=== PATIENT | male | born 1955 | race American Indian/Alaskan Native ===

== ENCOUNTER 2018-02-08 17:01 | Inpatient (IN) | payer SELFPAY ==
--- NOTE | 2018-02-08 17:38 | Emergency Department Report ---
HPI - General Chief Complaint: Seizure Time Seen by Provider: 02/08/18 17:35 - HPI HPI: 62-year-old -[place] male presents to the emergency department via EMS from outside of his home after a passerby knows the patient had passed out or was face down in the yard. EMS found him this way. At that time he was awake but confused. He was given 1 L of IV fluid in route and allegedly had some improvement but he is still confused. Patient is AAO [address] but not time. He denies any past medical history. He does admit to drinking beer regularly but says he did not drink any today. He says that he was outside cutting his yard/grass. He has a tobacco smoker. Currently the patient says that he feels fine without any physical complaints. ED Past Medical Hx - Social History Smoking Status: Never Smoker ED Review of Systems ROS: Stated complaint: SEIZURES Other details as noted in HPI Comment: Unobtainable due to pts medical conditions Cardiovascular: syncope Physical Exam - Physical Exam Vital Signs: Vital Signs 02/08/18 17:22 Temperature 98.7 F Pulse Rate 75 Respiratory 18 Rate Blood Pressure 141/80 O2 Sat by Pulse 100 Oximetry Physical Exam: GENERAL: The patient is well-developed well-nourished. HENT: Normocephalic. Atraumatic. Patient has moist mucous membranes. EYES: Extraocular motions are intact. Pupils equal reactive to light bilaterally. No nystagmus. NECK: Supple. Trachea is midline. CHEST/LUNGS: Clear to auscultation. There is no respiratory distress noted. HEART/CARDIOVASCULAR: Regular. There is no tachycardia. There is no murmur. ABDOMEN: Abdomen is soft, nontender. Patient has normal bowel sounds. There is no abdominal distention. SKIN: Skin is warm and dry. NEURO: The patient is awake, alert. Oriented to person and place but not time. The patient is cooperative. The patient has no focal neurologic deficits. The patient has normal speech and gait. No pronator drift. No dysmetria. Cranial nerves II through XII grossly intact. MUSCULOSKELETAL: There is no tenderness or deformity. There is no limitation range of motion. There is no evidence of acute injury. ED Course Vital Signs 02/08/18 17:22 Temperature 98.7 F Pulse Rate 75 Respiratory 18 Rate Blood Pressure 141/80 O2 Sat by Pulse 100 Oximetry ED Medical Decision Making - Lab Data Result diagrams: 02/08/18 17:46 02/08/18 17:46 - EKG Data -: EKG Interpreted by Me EKG shows normal: sinus rhythm, axis, intervals, QRS complexes, ST-T waves Rate: normal - EKG Data When compared to previous EKG there are: previous EKG unavailable Interpretation: normal EKG - Radiology Data Radiology results: report reviewed, image reviewed interpreted by me: Chest x-ray does not show any acute process. There are no pleural effusions, obvious pneumonia and there is no pneumothorax. EXAM: CT HEAD/BRAIN WO CON HISTORY: Altered Mental Status TECHNIQUE: CT examination of the head without IV contrast PRIORS: None. FINDINGS: Very small chronic appearing lacunar infarct right caudate head. No acute air-fluid level visualized in the included air-filled sinuses. Bone windows demonstrate no acute fracture. There is ventricular and sulcal prominence compatible with global cerebrocortical atrophy. The brain contains no mass, mass effect, hemorrhage, or acute infarct. There is no extra-axial intracranial bleed, brain bleed, or midline shift. IMPRESSION: No acute CVA, intracranial bleed, or brain mass Findings most compatible with very small chronic lacunar infarct in right caudate head Transcribed By: EDWIN Dictated By: HERNÁN LARSON MD Electronically Authenticated By: HERNÁN LARSON MD Signed Date/Time: 02/08/181846 - Medical Decision Making This patient presents to the emergency department via EMS after he was found down in a yard where he was mowing the lawn. 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 The patient has been awake, alert and cooperative since he has been in the emergency department and has no complaints. However the patient is unable to give the appropriate here or tell the president is. He says that it is 2002 , and this 15 year difference seems to much for the patient to claim that he just loses track of time. I spoke with his friend Seamus, and then later his sister Norma, and both of these individuals say that this patient usually is "sharp" and should usually know what year it is. 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 Patient says that he did drink some Gatorade but his sister thinks that he does not hydrate and off. However the urine does not show any ketones and there is no signs of prerenal azotemia or any systemic signs of dehydration at this time. A CT scan of the head was done that does not show any bleed, shift, mass, ischemia or any other acute process. Chest x-ray does not show any pneumonia, pneumothorax, pleural effusions or focal consolidation or any other acute process. EKG did not show any signs of ST elevation [place] or dysrhythmia. Patient's differential includes orthostatic hypotension, vasovagal episode, TIA, heatstroke, versus other. Patient has been given another liter of IV fluid as well as loaded with some Keppra and he will be admitted to the hospital for further evaluation and treatment. He was accepted for admission by the hospitalist, Dr. Begum. - Differential Diagnosis TIA, seizure, vasovagal episode, orthostatic hypotension Critical Care Time: No Critical care attestation.: If time is entered above; I have spent that time in minutes in the direct care of this critically ill patient, excluding procedure time. ED Disposition Clinical Impression: Syncope Qualifiers: Syncope type: unspecified Qualified Code(s): R55 - Syncope and collapse Altered mental status Qualifiers: Altered mental status type: unspecified Qualified Code(s): R41.82 - Altered mental status, unspecified Disposition: -09 OP ADMIT IP TO THIS HOSP Is pt being admited?: Yes Condition: Fair Instructions: Syncope (ED) Referrals: PRIMARY CARE, [Primary Care Provider] - 3-5 Days Time of Disposition: 23:00
[2018-02-08 18:00] LABS: Basophils % (Auto) 0.7 % (0.0-1.8); Eosinophils % (Auto) 1.1 % (0.0-4.3); Hemoglobin 11.6 gm/dl (11.8-15.2); Lymphocytes # (Auto) 0.8 K/mm3 (1.2-5.4); Lymphocytes % (Auto) 18.6 % (13.4-35.0); Mean Corpuscular HGB Conc 35 % (32-34); Mean Corpuscular Hemoglobin 34 pg (28-32); Mean Corpuscular Volume 98 fl (84-94); Monocytes # (Auto) 0.3 K/mm3 (0.0-0.8); Monocytes % (Auto) 7.8 % (0.0-7.3); Platelet Count 166 K/mm3 (140-440); Red Blood Count 3.38 M/mm3 (3.65-5.03); Red Cell Distribution Width 12.1 % (13.2-15.2)
[2018-02-08 18:11] LABS: INR 0.96 (0.87-1.13)
[2018-02-08 18:12] LABS: Partial Thromboplastin Time 32.3 Sec. (24.2-36.6)
[2018-02-08 18:19] LABS: Alanine Aminotransferase 73 units/L (7-56); Albumin 4.1 g/dL (3.9-5); BUN/Creatinine Ratio 7; Blood Urea Nitrogen 7 mg/dL (9-20); Calcium 8.9 mg/dL (8.4-10.2); Hemolysis Index 6
--- NOTE | 2018-02-08 18:49 | Cat Scan Report ---
FINAL REPORT EXAM: CT HEAD/BRAIN WO CON HISTORY: Altered Mental Status TECHNIQUE: CT examination of the head without IV contrast PRIORS: None. FINDINGS: Very small chronic appearing lacunar infarct right caudate head. No acute air-fluid level visualized in the included air-filled sinuses. Bone windows demonstrate no acute fracture. There is ventricular and sulcal prominence compatible with global cerebrocortical atrophy. The brain contains no mass, mass effect, hemorrhage, or acute infarct. There is no extra-axial intracranial bleed, brain bleed, or midline shift. IMPRESSION: No acute CVA, intracranial bleed, or brain mass Findings most compatible with very small chronic lacunar infarct in right caudate head
[2018-02-08] MEDS ORDERED: LEVOPHED DRIP 4 MG/NS 250 ML 4 MG/250 ML BAG IV ONE (20:50)
--- NOTE | 2018-02-08 21:06 | XRay Report ---
FINAL REPORT PROCEDURE: Chest. TECHNIQUE: Chest radiograph anteroposterior view. CPT 02792 HISTORY: Altered Mental Status COMPARISON: No prior studies are available for comparison. FINDINGS: The heart and mediastinum appear normal. There is calcification in the thoracic aorta. The lungs are clear and well expanded. There are no pleural effusions. The soft tissues and regional skeleton are unremarkable. IMPRESSION: No evidence of acute disease.
[2018-02-08 21:08] LABS: Amphetamine Screen,Urine PRESUMPTIVE NEGATIVE; Benzodiazepines Screen,Urine PRESUMPTIVE NEGATIVE; Cannabinoid Screen,Urine PRESUMPTIVE NEGATIVE; Cocaine Screen,Urine PRESUMPTIVE NEGATIVE; Methadone Screen,Urine PRESUMPTIVE NEGATIVE; Opiate Screen,Urine PRESUMPTIVE NEGATIVE
[2018-02-08 21:09] LABS: Bilirubin,Urine NEG (Negative); Blood,Urine SM (Negative); Color,Urine Yellow (Yellow); Mucus,Urine FEW /HPF; Protein,Urine <15 mg/dL mg/dL (Negative); WBC,Urine < 1.0 /HPF (0.0-6.0)
[2018-02-08] MEDS ORDERED: KEPPRA 1,000 MG/NS 0.75% 100ML 1,000 MG/100 ML BAG IV ONE (21:28)
[2018-02-08] MEDS ORDERED: NACL 0.9% 1000 ML 1,000 ML IV ONE (21:36)
[2018-02-08] MEDS ORDERED: ZOFRAN IV PRN (22:40)
[2018-02-08] MEDS ORDERED: SODIUM CHLORIDE FLUSH SYRINGE 10 ML IV PRN (22:40)
[2018-02-08] MEDS ORDERED: TYLENOL PO PRN (22:40)
--- NOTE | 2018-02-08 22:43 | History and Physical Report ---
History of Present Illness Date of examination: 02/08/18 History of present illness: This is a 62-year-old man with no medical problem comes to emergency room because he was found outside unresponsive. Patient stated he was outside cutting grass for about 5 hours, he cannot recall what happened, EOMI clear if he had any seizure activity. The patient was initially confused upon arrival in the emergency room but he is now back to baseline, he was given a gram of Keppra in the ER Review of systems Constitutional: no weight loss, chills, fever Ears, eyes, nose, mouth and throat: no nasal congestion, no nasal discharge, no sinus pressure, no vision change, no red eye. Neck: No neck pain or rigidity. Cardiovascular: no chest pain, palpitations Respiratory: no cough, shortness of breath Gastrointestinal: no abdominal pain hematochezia Genitourinary : no frequency , no hematuria Musculoskeletal: no joint swelling or muscle ache Integumentary: no rash, no pruritis Neurological: no parathesias, no numbness, no focal weakness Endocrine: no cold or heat intolerance, no polyuria or polydipsia Hematologic/Lymphatic: no easy bruising, no easy bleeding, no gland swelling Allergic/Immunologic: no urticaria, no angioedema. PAST MEDICAL HISTORY: None PAST SURGICAL HISTORY: None SOCIAL HISTORY: Drinks alcohol, no drugs, tobacco FAMILY HISTORY: Hypertension Medications and Allergies Allergies Allergy/AdvReac Type Severity Reaction Status Date / Time No Known Allergies Allergy Verified 02/08/18 20:48 Exam - Physical Exam Narrative exam: Gen. appearance: Patient lying in bed, no apparent distress HEENT: Normocephalic, atraumatic, pupils equally round and reactive to light, extraocular movement intact, and no sclericterus,. No JVD or thyromegaly or nodule,neck supple, no carotid bruit ,mucous membranes moist, no exudate or erythema Heart: S1, S2, regular rate and rhythm Lungs: Clear bilaterally, breathing comfortable Abdomen: Positive bowel sounds, non-tender, nondistended, no organomegaly Extremity:no edema cyanosis, clubbing Skin: no rash, dry, warm Neuro: Oriented 3, cranial nerves II-12 intact, speech is fluent, motor and sensory intact - Constitutional Vitals: Temp Pulse Resp BP Pulse Ox 98.7 F 75 18 141/80 100 02/08/18 17:22 02/08/18 17:22 02/08/18 17:22 02/08/18 17:22 02/08/18 17:22 Results - Labs CBC & Chem 7: 02/08/18 17:46 02/08/18 17:46 Labs: Abnormal lab results 02/08/18 02/08/18 Range/Units 17:46 17:46 WBC 4.2 L (4.5-11.0) K/mm3 RBC 3.38 L (3.65-5.03) M/mm3 Hgb 11.6 L (11.8-15.2) gm/dl Hct 33.0 L (35.5-45.6) % MCV 98 H (84-94) fl MCH 34 H (28-32) pg MCHC 35 H (32-34) % RDW 12.1 L (13.2-15.2) % O'Brien % (Auto) 7.8 H (0.0-7.3) % Lymph # 0.8 L (1.2-5.4) K/mm3 Seg Neutrophils % 71.8 H (40.0-70.0) % Sodium 132 L (137-145) mmol/L BUN 7 L (9-20) mg/dL Glucose 117 H (75-100) mg/dL AST 91 H (5-40) units/L ALT 73 H (7-56) units/L - Imaging and Cardiology EKG: image reviewed Chest x-ray: report reviewed Assessment and Plan Assessment Syncope most likely secondary to heatstroke Plan Admit to medicine Start IV fluid, checkout statics, carotid Doppler, echo Check cardiac enzymes DVT prophylaxis
[2018-02-08] MEDS ORDERED: NACL 0.45% 1000 ML 1,000 ML IV SCH (23:00)
[2018-02-09 02:41] LABS: Creatine Kinase MB 4.2 ng/mL (0.0-4.0)
[2018-02-09 07:29] LABS: Basophils % (Auto) 0.8 % (0.0-1.8); Eosinophils # (Auto) 0.1 K/mm3 (0.0-0.4); Eosinophils % (Auto) 1.6 % (0.0-4.3); Hematocrit 34.3 % (35.5-45.6); Lymphocytes # (Auto) 1.7 K/mm3 (1.2-5.4); Lymphocytes % (Auto) 33.7 % (13.4-35.0); Mean Corpuscular HGB Conc 35 % (32-34); Mean Corpuscular Hemoglobin 34 pg (28-32); Mean Corpuscular Volume 97 fl (84-94); Monocytes # (Auto) 0.5 K/mm3 (0.0-0.8); Monocytes % (Auto) 10.6 % (0.0-7.3); Platelet Count 157 K/mm3 (140-440); Red Blood Count 3.53 M/mm3 (3.65-5.03); Red Cell Distribution Width 12.1 % (13.2-15.2)
[2018-02-09 07:47] LABS: BUN/Creatinine Ratio 7; Blood Urea Nitrogen 5 mg/dL (9-20); Calcium 9.1 mg/dL (8.4-10.2); Creatine Kinase MB 4.6 ng/mL (0.0-4.0); Hemolysis Index 4
[2018-02-09] MEDS ORDERED: SODIUM CHLORIDE FLUSH SYRINGE 10 ML IV SCH (10:00)
[2018-02-09] MEDS ORDERED: LOVENOX SUB-Q SCH ×2 (10:00)
[2018-02-09 12:39] VITALS: BP 127/76
--- NOTE | 2018-02-09 14:15 | Discharge Summary ---
Providers - Providers Date of Admission: 02/08/18 22:40 Date of discharge: 02/09/18 Attending physician: JUANCARLOS SHOEMAKER Primary care physician: UPPER STITCHER Hospitalization Condition: Fair Hospital course: Brief history: Patient Is a 62 year old man with no prior medical problems came to the emergency room because he was found unresponsive outside after cutting grass for about 5 hours. He could not remember what happened and there was no documented history or weakness or seizure-like activities patient was initially confused upon arrival in the ER but during admission his mental status came back to baseline. He was given a gram of Keppra in the ER, CT head showed no acute intracranial process, his chest x-ray was unremarkable. He was admitted for further evaluation and management. He was further evaluated by 2-D echocardiogram which showed preserved ejection fraction and diastolic dysfunction. His carotid Doppler showed less than 50% stenosis bilaterally. Patient was not discharged with Keppra as an outpatient as he does not have any prior history of seizure and there's no clear history or witness that patient actually had one prior to admission. Patient was discharged home in stable condition with outpatient follow-up. Discharge diagnosis: Syncope most likely due to dehydration and being exposed to hot weather for long -time. H/o old CVA, started on aspirin and statin Radiological data: CT head: No acute CVA, intracranial bleed, or brain mass. Findings most compatible with very small chronic lacunar infarct in right caudate head. Chest x-ray: No evidence of acute disease. 2-D echo: EF 60-65% with normal and preserved LV diastolic function Disposition: TO HOME OR SELFCARE Core Measure Documentation - Palliative Care Palliative Care/ Comfort Measures: Not Applicable - Core Measures Any of the following diagnoses?: none Exam - Constitutional Vitals: Temp Pulse Resp BP Pulse Ox 98.4 F 75 20 127/76 98 02/09/18 12:00 02/09/18 12:00 02/09/18 12:00 02/09/18 12:00 02/09/18 12:00 General appearance: Present: no acute distress, well-nourished - EENT Eyes: Present: PERRL ENT: hearing intact, clear oral mucosa - Neck Neck: Present: supple, normal ROM - Respiratory Respiratory effort: normal Respiratory: bilateral: CTA - Cardiovascular Heart Sounds: Present: S1 & S2. Absent: rub, click - Extremities Extremities: pulses symmetrical, No edema Peripheral Pulses: within normal limits - Abdominal General gastrointestinal: Present: soft, non-tender, non-distended, normal bowel sounds - Integumentary Integumentary: Present: clear, warm, dry - Musculoskeletal Musculoskeletal: gait normal, strength equal bilaterally - Psychiatric Psychiatric: appropriate mood/affect, intact judgment & insight - Neurologic Neurologic: CNII-XII intact, moves all extremities Plan Activity: advance as tolerated Weight Bearing Status: Weight Bear as Tolerated Diet: low fat Follow up with: PRIMARY CARE, [Primary Care Provider] - 3-5 Days Forms: Discharge Signature Page Prescriptions: Pravastatin [Pravachol] 40 mg PO QHS #30 tablet Aspirin [Aspirin BABY CHEW TAB] 81 mg PO QDAY #30 tab.chew
== END 2018-02-09 16:49 | disposition home or self-care (01) | DRG 641 ==
LOC: ED 17:01 → 4A 22:40
PROVIDERS: ADMIT Internal Medicine; ATTEND Internal Medicine
DX: E86.0 Dehydration (principal); Z82.49 Family history of ischemic heart disease and other diseases of the circulatory system; Z86.73 Personal history of transient ischemic attack (TIA), and cerebral infarction without residual deficits; X30.XXXA Exposure to excessive natural heat, initial encounter; Y93.89 Activity, other specified; Y92.096 Garden or yard of other non-institutional residence as the place of occurrence of the external cause; Y99.8 Other external cause status
CPT/HCPCS: 36415; 70450; 71045; 80048; 80053; 80307; 80320; 81001; 82140; 82550; 82553; 84443; 84484; 85025; 85610; 85730; 93005; 93010; 93306; 93880; 96365; G0480; J1650; J1953; J7030

== ENCOUNTER 2019-02-06 22:37 | Emergency (ER) | payer SELFPAY ==
[2019-02-06] MEDS ORDERED: KEPPRA 500 MG in D5W 100 ML IV ONE (23:00)
[2019-02-06 23:40] LABS: Basophils # (Auto) 0.1 K/mm3 (0.0-0.1); Eosinophils % (Auto) 0.7 % (0.0-4.3); Hemoglobin 12.3 gm/dl (11.8-15.2); Lymphocytes # (Auto) 1.5 K/mm3 (1.2-5.4); Lymphocytes % (Auto) 25.9 % (13.4-35.0); Mean Corpuscular HGB Conc 34 % (32-34); Mean Corpuscular Volume 98 fl (84-94); Monocytes # (Auto) 0.4 K/mm3 (0.0-0.8); Monocytes % (Auto) 7.7 % (0.0-7.3); Platelet Count 235 K/mm3 (140-440); Red Blood Count 3.68 M/mm3 (3.65-5.03); Red Cell Distribution Width 12.4 % (13.2-15.2)
[2019-02-06 23:49] LABS: BUN/Creatinine Ratio 10; Blood Urea Nitrogen 9 mg/dL (9-20); Calcium 9.8 mg/dL (8.4-10.2); Hemolysis Index 6
--- NOTE | 2019-02-07 00:22 | Emergency Department Report ---
ED Seizure HPI - General Chief Complaint: Seizure Stated Complaint: SEIZURE Time Seen by Provider: 02/06/19 23:00 Source: EMS Mode of arrival: Stretcher Limitations: No Limitations - History of Present Illness Initial Comments: Mr. Gordon is a 63 yo jmale with hx of alcohol abuse and seizure disorder who presents to the ER after witnessed seizure. Witnessed by brother. Mr. Gordon at this point does not have any concerns. Livestock Laborer at the bedside did observe confusion at the scene. He explained that he does take pills. He is unable to recall the name of the pills. MD Complaint: seizure -: Sudden Description of Episode: loss of consciousness, tonic-clonic movement Witnessed:: Yes Trauma: No Seizure History: known seizure disorder, other (hx of alcohol abuse) Possible Precipitating Event: none Associated Symptoms: denies other symptoms Treatments Prior to Arrival: none - Related Data Previous Rx's Medication Instructions Recorded Last Taken Type Aspirin [Aspirin BABY CHEW TAB] 81 mg PO QDAY #30 tab.chew 02/09/18 Unknown Rx Pravastatin [Pravachol] 40 mg PO QHS #30 tablet 02/09/18 Unknown Rx levETIRAcetam [Keppra TAB] 500 mg PO BID #60 tablet 02/07/19 Unknown Rx Allergies Allergy/AdvReac Type Severity Reaction Status Date / Time No Known Allergies Allergy Verified 02/08/18 20:48 ED Review of Systems ROS: Stated complaint: SEIZURE Other details as noted in HPI Comment: All other systems reviewed and negative Constitutional: denies: fever, malaise Respiratory: denies: cough Cardiovascular: denies: chest pain Neurological: denies: headache ED Past Medical Hx - Past Medical History Previous Medical History?: Yes Hx Congestive Heart Failure: No Hx Diabetes: No Hx Seizures: Yes Hx Asthma: No Hx COPD: No - Family History Family history: hypertension - Social History Substance Use Type: Alcohol - Medications Home Medications: Home Medications Medication Instructions Recorded Confirmed Last Taken Type Aspirin [Aspirin BABY CHEW TAB] 81 mg PO QDAY #30 tab.chew 02/09/18 Unknown Rx Pravastatin [Pravachol] 40 mg PO QHS #30 tablet 02/09/18 Unknown Rx levETIRAcetam [Keppra TAB] 500 mg PO BID #60 tablet 02/07/19 Unknown Rx ED Physical Exam - General Limitations: No Limitations General appearance: alert, in no apparent distress, other (disheveled hair and clothing, awake, alert) - Head Head exam: Present: atraumatic, normocephalic - Eye Eye exam: Present: normal appearance. Absent: scleral icterus, conjunctival injection - ENT ENT exam: Present: mucous membranes moist - Neck Neck exam: Present: normal inspection, full ROM - Respiratory Respiratory exam: Present: normal lung sounds bilaterally. Absent: respiratory distress, wheezes, rales, rhonchi - Cardiovascular Cardiovascular Exam: Present: regular rate, normal rhythm, normal heart sounds. Absent: systolic murmur, diastolic murmur, rubs, gallop - GI/Abdominal GI/Abdominal exam: Present: soft, normal bowel sounds. Absent: distended, tenderness, guarding, rebound - Rectal Rectal exam: Present: deferred - Extremities Exam Extremities exam: Present: normal inspection - Back Exam Back exam: Present: normal inspection - Neurological Exam Neurological exam: Present: alert, oriented X3 - Psychiatric Psychiatric exam: Present: normal affect, normal mood - Skin Skin exam: Present: warm, dry, intact, normal color. Absent: rash ED Course Vital Signs 02/06/19 23:45 Temperature 97.6 F Pulse Rate 86 Respiratory 17 Rate Blood Pressure 163/92 [Left] O2 Sat by Pulse 98 Oximetry ED Medical Decision Making - Lab Data Result diagrams: 02/06/19 23:09 02/06/19 23:09 Laboratory Results - last 24 hr 02/06/19 02/06/19 23:09 23:09 WBC 5.7 RBC 3.68 Hgb 12.3 Hct 36.0 MCV 98 H MCH 33 H MCHC 34 RDW 12.4 L Plt Count 235 Lymph % (Auto) 25.9 [place] % (Auto) 7.7 H Eos % (Auto) 0.7 Baso % (Auto) 1.0 Lymph # 1.5 [place]ades # 0.4 Eos # 0.0 Baso # 0.1 Seg Neutrophils % 64.7 Seg Neutrophils # 3.7 Sodium 134 L Potassium 4.1 Chloride 92.5 L Carbon Dioxide 22 Anion Gap 24 BUN 9 Creatinine 0.9 Estimated GFR > 60 BUN/Creatinine Ratio 10 Glucose 149 H Calcium 9.8 - Medical Decision Making Mr. Gordon is a 63 yo male with hx of seizure disorder and alcohol abuse. He received Keppra load in the ED. Observed in the ED for 4 hours without seizure activity. BMP notable for mild hyponatremia hypochloremia. dc'd home with rx: for keppra referral to neurology Hx of seizure activity was documented one year ago on previous evaluation Critical care attestation.: If time is entered above; I have spent that time in minutes in the direct care of this critically ill patient, excluding procedure time. ED Disposition Clinical Impression: Seizure Disposition: DC-01 TO HOME OR SELFCARE Is pt being admited?: No Does the pt Need Aspirin: No Condition: Stable Instructions: Recurrent Seizures Adult (ED) Prescriptions: levETIRAcetam [Keppra TAB] 500 mg PO BID #60 tablet Referrals: JOSE CABRERA MD [Staff Physician] - 3-5 Days
[2019-02-07 08:14] VITALS: BP 140/70
== END 2019-02-07 09:27 | disposition home or self-care (01) ==
LOC: ED 22:37
DX: G40.909 Epilepsy, unspecified, not intractable, without status epilepticus (principal)
CPT/HCPCS: 36415; 80048; 85025; 96365; 99284; J1953; 80320; G0480